=== PATIENT | female | born 1970 | race African-American/Black ===

== ENCOUNTER 2021-05-05 05:50 | Day surgery (SDC) | payer OTHER ==
[2021-04-30 10:36] VITALS: BMI 25.8
[2021-05-05] MEDS ORDERED: LIDOCAINE HCL 2% (20ML MULTI-DOSE VIAL) ONE (07:06)
[2021-05-05] MEDS ORDERED: BUPIVACAINE HCL/PF 0.25% (2.5MG/ML) 10 ML VIAL ONE (07:06)
[2021-05-05] MEDS ORDERED: MIDAZOLAM HCL 2 MG/2 ML SINGLE DOSE VIAL ONE (07:23)
[2021-05-05] MEDS ORDERED: PROPOFOL 20 ML ONE (07:23)
[2021-05-05] MEDS ORDERED: DEXAMETHASONE SOD PHOSPHATE 4 MG/1 ML VIAL ONE (07:51)
[2021-05-05] MEDS ORDERED: ONDANSETRON 4 MG/2 ML VIAL ONE (07:51)
[2021-05-05] MEDS ORDERED: KETOROLAC TROMETHAMINE 30 MG/1 ML VIAL ONE (08:16)
[2021-05-05 08:34] VITALS: TEMP 97
[2021-05-05 08:50] VITALS: BP 126/70; PULSE 61
== END 2021-05-05 08:50 | disposition home or self-care (01) ==
LOC: FASU 05:50
PROVIDERS: ATTEND Orthopaedic Surgery Hand Surgery
PROC: 01N50ZZ Release Median Nerve, Open Approach (ICD-10-PCS; principal; 2021-05-05 07:59)
DX: G56.01 Carpal tunnel syndrome, right upper limb (principal)
CPT/HCPCS: 81025; 82962